=== PATIENT | male | born 1990 | race Caucasian/White ===

== ENCOUNTER 2019-06-17 11:37 | Emergency (ER) | payer MEDICAID ==
[~2019-06-17] VITALS: Ht 170.2 cm; Wt 90.4 kg
[2019-06-17 11:39] VITALS: BP 137/72
== END 2019-06-17 13:00 | disposition home or self-care (01) ==
LOC: ED 12:28
DX: G56.01 Carpal tunnel syndrome, right upper limb (principal); F17.200 Nicotine dependence, unspecified, uncomplicated
CPT/HCPCS: 29125; 93005; 99283

== ENCOUNTER 2020-10-12 23:14 | Emergency (ER) | payer SELFPAY ==
[~2020-10-12] VITALS: Ht 167.6 cm; Wt 84.2 kg
[2020-10-13] MEDS ORDERED: PROPOFOL 10 MG/ML, 20ML IVPush ONE (00:30)
[2020-10-13] MEDS ORDERED: LIDOCAINE 1%-EPI 1:100K, 20ML SQ ONE (00:30)
[2020-10-13] MEDS ORDERED: LIDOCAINE 1%-EPI 1:100K, 20ML ONE (00:47)
[2020-10-13] MEDS ORDERED: PROPOFOL 10 MG/ML, 20ML ONE ×2 (00:47→01:17)
--- NOTE | 2020-10-13 01:30 | NUR ---
Patient prepped for procedural sedation for an I&D.
[2020-10-13 02:50] VITALS: BP 103/51
== END 2020-10-13 02:57 | disposition home or self-care (01) ==
LOC: ED 10-13 00:09
DX: L02.414 Cutaneous abscess of left upper limb (principal); M25.551 Pain in right hip; M79.661 Pain in right lower leg; M79.622 Pain in left upper arm; F15.10 Other stimulant abuse, uncomplicated; F17.210 Nicotine dependence, cigarettes, uncomplicated; F11.10 Opioid abuse, uncomplicated
CPT/HCPCS: 10060; 87070; 87077; 87186; 87205; 99152; 99406

== ENCOUNTER 2020-10-15 13:12 | Emergency (ER) | payer SELFPAY ==
[~2020-10-15] VITALS: Ht 167.6 cm; Wt 85.4 kg
[2020-10-15 13:16] VITALS: BP 133/80
== END 2020-10-15 14:38 | disposition home or self-care (01) ==
LOC: ED 14:29
DX: L02.414 Cutaneous abscess of left upper limb (principal)
CPT/HCPCS: 99283

== ENCOUNTER 2020-10-18 16:21 | Emergency (ER) | payer SELFPAY ==
[~2020-10-18] VITALS: Ht 167.6 cm; Wt 86.0 kg
[2020-10-18 16:32] VITALS: BP 138/76
--- NOTE | 2020-10-18 17:01 | NUR ---
LEASE PURCHASE DRIVER: PT TO ROOM FROM [facility]
--- NOTE | 2020-10-18 17:47 | NUR ---
WOUND DRESSED. PT PROVIDED WOUND CARE ITEMS. DC EDUCATION PROVIDED, PT DEMONSTRATES UNDERSTANDING. PT AMBULATED STEADILY TO DC WITH RN AND FRIEND.
== END 2020-10-18 17:49 | disposition home or self-care (01) ==
LOC: ED 17:32
DX: Z48.01 Encounter for change or removal of surgical wound dressing (principal); F17.200 Nicotine dependence, unspecified, uncomplicated
CPT/HCPCS: 99281